=== PATIENT | female | born 1950 | race Caucasian/White ===

== ENCOUNTER → 2016-10-02 | Outpatient (CLI) | payer OTHER ==
[~2016-10-02] MED LIST: NS 100 ML IV 100 ML IV ONE
[2016-10-02 08:12] LABS: CREATININE 0.86 mg/dL (0.55-1.02)
--- NOTE | 2016-10-02 14:45 | CT ---
Bilateral lower extremity CT angiogram Indication: Cellulitis of the left toes and peripheral vascular disease Technique: Helical CT images of the lower abdomen and pelvis with bilateral lower extremity runoff w ere obtained from the level of the infrarenal abdominal aorta with IV contrast. Reformatted images i n the coronal and sagittal planes as well as 3D volume rendered images of the vasculature were also generated for review. Comparison: None Findings: Nonangiographic Findings: The visualized lower abdominal pelvic bowel loops, including the appendix are unremarkable. The urin kymberly bladder is collapsed. The uterus is present. No free air, free fluid or lymphadenopathy is ident ified. Bilateral popliteal fossa cysts are noted. There is a subacute, healing fracture of the left distal 3rd metatarsal shaft. There is also suggestion of an age indeterminate, intra-articular fracture of the left 2nd metatarsal base. Further evaluation is limited due to large field of view and patient p ositioning. There is mild soft tissue swelling along the dorsum of the left forefoot. No discrete ul ceration, drainable fluid collection or gross osseous destruction is identified to suggest advanced osteomyelitis. Angiographic findings: There is minimal calcification of the infrarenal abdominal aorta without aneurysm. The CHRIS and bilat eral iliofemoral systems are widely patent. The bilateral CFAs, profundal femoris arteries, SFAs and popliteal arteries demonstrate no appreciable calcification and are widely patent. The bilateral an terior tibial and peroneal arteries are diminutive in caliber but widely patent, with both anterior tibial arteries continuing into the foot as diminutive DPAs. Both posterior tibial arteries are wide ly patent and continue into the feet to supply the plantar arch branches. Impression: 1. Diminutive bilateral anterior tibial arteries with otherwise normal 2 vessel run off to the feet. 2. Subacute healing fracture of the distal left 3rd metatarsal shaft and suspected, age-indeterminat e fracture of the left 2nd metatarsal base. Further evaluation with dedicated left foot radiograph i s recommended. 3. Mild soft tissue swelling along the dorsal left forefoot may be reactive or reflect cellulitis. C linical correlation is needed. 4. Bilateral popliteal fossa cysts and additional incidental findings, as above. Reported By:
== END ==
LOC: RAD 07:17
PROVIDERS: ATTEND Internal Medicine
DX: L03.032 Cellulitis of left toe (principal); I73.89 Other specified peripheral vascular diseases
CPT/HCPCS: 36415; 73706; 82565; 84520; A4222

== ENCOUNTER → 2016-12-19 | Outpatient (CLI) | payer OTHER ==
[2016-12-19 16:02] LABS: ALANINE AMINOTRANSFERASE 28 Units/L (12-78); ASPARTATE AMINO TRANSFERASE 31 Units/L (15-37)
== END ==
LOC: LAB 15:13
PROVIDERS: ATTEND Podiatrist
DX: B35.1 Tinea unguium (principal)
CPT/HCPCS: 36415; 84450; 84460

== ENCOUNTER → 2017-01-28 | Outpatient (CLI) | payer OTHER ==
[2017-01-28 12:09] LABS: ALANINE AMINOTRANSFERASE 24 Units/L (12-78); ASPARTATE AMINO TRANSFERASE 21 Units/L (15-37)
== END ==
LOC: LAB 11:15
PROVIDERS: ATTEND Podiatrist
DX: B35.1 Tinea unguium (principal)
CPT/HCPCS: 36415; 84450; 84460